=== PATIENT | female | born 1975 | race Caucasian/White ===

== ENCOUNTER 2017-12-22 06:52 | Inpatient (IN) | payer OTHER ==
[2017-12-22 07:31] LABS: ADD MAN DIFF? NO
[2017-12-22 07:35] LABS: URINE HCG POC HCG NEGATIVE (Negative)
[2017-12-22 07:37] LABS: BASO # 0.1 x10^3/uL (0.0-0.2); BASO % 2 % (0-3); EOS # 0.1 x10^3/uL (0.0-0.7); EOS % 1 % (0-3); LYMPH # 1.9 x10^3/uL (1.0-4.8); LYMPH % 37 % (24-48); MEAN CORPUSCULAR HEMOGLOBIN 16 pg (25-35); MEAN CORPUSCULAR HGB CONC 28 g/dL (31-37); MEAN CORPUSCULAR VOLUME 57 fL (79-100); MONO # 0.4 x10^3/uL (0.0-1.1); MONO % 8 % (0-9); NEUT # 2.6 x10^3uL (1.8-7.7); NEUT % 52 % (31-73); PLATELET COUNT 542 x10^3/uL (140-400); RED BLOOD COUNT 2.42 x10^6/uL (3.50-5.40); RED CELL DISTRIBUTION WIDTH 23.8 % (11.5-14.5); WHITE BLOOD COUNT 5.1 x10^3/uL (4.0-11.0)
[2017-12-22 07:43] LABS: HEMOGLOBIN 3.8 g/dL (12.0-15.5)
[2017-12-22 07:44] LABS: HEMATOCRIT 13.7 % (36.0-47.0)
[2017-12-22 07:46] LABS: ANION GAP 13 (6-14); BLOOD UREA NITROGEN 17 mg/dL (7-20); CALCIUM 8.6 mg/dL (8.5-10.1); CARBON DIOXIDE 22 mmol/L (21-32); CHLORIDE 105 mmol/L (98-107); CREATININE 1.1 mg/dL (0.6-1.0); GLUCOSE 99 mg/dL (70-99); POTASSIUM 3.9 mmol/L (3.5-5.1); SODIUM 140 mmol/L (136-145)
[2017-12-22 07:52] LABS: TROPONINI < 0.017 ng/mL (0.000-0.055)
[2017-12-22 07:54] LABS: BILIRUBIN,URINE NEGATIVE (NEG); CLARITY,URINE CLEAR; COLOR,URINE YELLOW; GLUCOSE,URINE NEGATIVE (NEG); NITRITE,URINE POSITIVE (NEG); PH,URINE 5.5; PROTEIN,URINE 30 mg/dL (NEG-TRACE)
[2017-12-22 08:04] LABS: BACTERIA,URINE MANY /HPF (0-FEW); RBC,URINE TNTC /HPF (0-2); SQUAMOUS EPITHELIAL CELL,UR FEW /LPF
[2017-12-22 09:01] LABS: ANISOCYTOSIS PRESENT; HYPOCHROMIA PRESENT; MICROCYTOSIS PRESENT; PLT ESTIMATE INCREASED (ADEQUATE); POIKILOCYTOSIS PRESENT; POLYCHROMASIA PRESENT
[2017-12-22] MEDS: medroxyPROGESTERone IM 150 MG/ML VIAL. IM (15:12)
[2017-12-22] MEDS: ACETAMINOPHEN 325 MG TABLET. PO (16:58)
[2017-12-23] MEDS: ACETAMINOPHEN 325 MG TABLET. PO ×2 (04:49→11:18)
[2017-12-23 07:26] LABS: ADD MAN DIFF? NO
[2017-12-23 07:31] LABS: BASO # 0.1 x10^3/uL (0.0-0.2); BASO % 1 % (0-3); EOS # 0.1 x10^3/uL (0.0-0.7); EOS % 1 % (0-3); HEMATOCRIT 22.2 % (36.0-47.0); LYMPH % 40 % (24-48); MEAN CORPUSCULAR HEMOGLOBIN 22 pg (25-35); MEAN CORPUSCULAR HGB CONC 32 g/dL (31-37); MEAN CORPUSCULAR VOLUME 68 fL (79-100); MONO # 0.5 x10^3/uL (0.0-1.1); MONO % 11 % (0-9); NEUT # 2.3 x10^3uL (1.8-7.7); NEUT % 47 % (31-73); PLATELET COUNT 392 x10^3/uL (140-400); RED BLOOD COUNT 3.26 x10^6/uL (3.50-5.40); RED CELL DISTRIBUTION WIDTH 32.8 % (11.5-14.5)
[2017-12-23 07:55] LABS: ALBUMIN 3.1 g/dL (3.4-5.0); ALK PHOS 53 U/L (46-116); ALT (SGPT) 10 U/L (14-59); ANION GAP 6 (6-14); AST (SGOT) 8 U/L (15-37); BLOOD UREA NITROGEN 11 mg/dL (7-20); BUN/CREATININE RATIO 12 (6-20); CALCIUM 8.8 mg/dL (8.5-10.1); CARBON DIOXIDE 26 mmol/L (21-32); CHLORIDE 106 mmol/L (98-107); CREATININE 0.9 mg/dL (0.6-1.0); GLUCOSE 90 mg/dL (70-99); POTASSIUM 4.5 mmol/L (3.5-5.1); SODIUM 138 mmol/L (136-145); TOTAL BILIRUBIN 0.4 mg/dL (0.2-1.0); TOTAL PROTEIN 6.3 g/dL (6.4-8.2)
[2017-12-23] MEDS ORDERED: ONDANSETRON ODT 4 MG TAB.RAPDIS. PO (08:45)
[2017-12-23] MEDS ORDERED: ACETAMINOPHEN 325 MG TABLET. PO (08:45)
[2017-12-23] MEDS ORDERED: ONDANSETRON PF 4 MG/2 ML VIAL. IV (08:45)
[2017-12-23] MEDS ORDERED: HYDROcodone/APAP 5/325MG 1 TAB TABLET PO (09:00)
[2017-12-23 10:19] LABS: IMMEDIATE SPIN CROSSMATCH 1 5
[2017-12-23 14:12] LABS: HEMATOCRIT 25.1 % (36.0-47.0); HEMOGLOBIN 7.9 g/dL (12.0-15.5); MEAN CORPUSCULAR HGB CONC 32 g/dL (31-37)
[2017-12-23] MEDS: IV NORMAL SALINE 1000ML BAG 1,000 ML IV ×2 (15:43→20:49)
[2017-12-24] MEDS: IV NORMAL SALINE 1000ML BAG 1,000 ML IV (01:24)
[2017-12-24 06:15] LABS: ADD MAN DIFF? NO
[2017-12-24 06:29] LABS: BASO # 0.1 x10^3/uL (0.0-0.2); BASO % 2 % (0-3); EOS # 0.1 x10^3/uL (0.0-0.7); EOS % 2 % (0-3); HEMATOCRIT 25.8 % (36.0-47.0); LYMPH # 1.9 x10^3/uL (1.0-4.8); LYMPH % 46 % (24-48); MEAN CORPUSCULAR HEMOGLOBIN 22 pg (25-35); MEAN CORPUSCULAR HGB CONC 31 g/dL (31-37); MEAN CORPUSCULAR VOLUME 71 fL (79-100); MONO # 0.4 x10^3/uL (0.0-1.1); MONO % 10 % (0-9); NEUT # 1.7 x10^3uL (1.8-7.7); NEUT % 41 % (31-73); PLATELET COUNT 354 x10^3/uL (140-400); RED BLOOD COUNT 3.65 x10^6/uL (3.50-5.40); RED CELL DISTRIBUTION WIDTH 32.5 % (11.5-14.5); WHITE BLOOD COUNT 4.1 x10^3/uL (4.0-11.0)
[2017-12-24] MEDS ORDERED: miSOPROStol 200MCG TAB 200 MCG TABLET (10:03)
[2017-12-24] MEDS ORDERED: OXYTOCIN 10 UNIT/ML VIAL. (10:03)
[2017-12-24] MEDS ORDERED: IV RINGERS,LACTATED 1000ML 1,000 ML IV (11:08)
[2017-12-24] MEDS ORDERED: LIDOCAINE 1% PF 2 ML VIAL. ID (11:15)
[2017-12-24] MEDS ORDERED: fentaNYL PF VIAL 100 MCG/2 ML VIAL IV (11:15)
[2017-12-24] MEDS ORDERED: fentaNYL PF VIAL 100 MCG/2 ML VIAL ×2 (11:47→12:51)
[2017-12-24] MEDS ORDERED: LIDOCAINE 2% PF Vial for OR 5 ML VIAL. (11:51)
[2017-12-24] MEDS ORDERED: PROPOFOL 20 ML IV (11:51)
[2017-12-24] MEDS: fentaNYL PF VIAL 100 MCG/2 ML VIAL IV (12:55)
[2017-12-24] MEDS: medroxyPROGESTERone IM 150 MG/ML VIAL. IM (13:02)
[2017-12-24] MEDS: ACETAMINOPHEN 325 MG TABLET. PO (14:15)
[2017-12-24 14:51] LABS: HEMATOCRIT 28.4 % (36.0-47.0); MEAN CORPUSCULAR HEMOGLOBIN 22 pg (25-35); MEAN CORPUSCULAR HGB CONC 32 g/dL (31-37); MEAN CORPUSCULAR VOLUME 70 fL (79-100); PLATELET COUNT 371 x10^3/uL (140-400); RED BLOOD COUNT 4.03 x10^6/uL (3.50-5.40); RED CELL DISTRIBUTION WIDTH 33.1 % (11.5-14.5); WHITE BLOOD COUNT 6.9 x10^3/uL (4.0-11.0)
== END 2017-12-24 16:10 | disposition home or self-care (01) | DRG 744 ==
LOC: ER 06:52 → 4 NORTH 09:33
PROC: 0UDB7ZX Extraction of Endometrium, Via Natural or Artificial Opening, Diagnostic (ICD-10-PCS; principal; 2017-12-24 11:50)
PROC: 30233N1 Transfusion of Nonautologous Red Blood Cells into Peripheral Vein, Percutaneous Approach (ICD-10-PCS; 2017-12-24 11:50)
DX: D25.9 Leiomyoma of uterus, unspecified (principal); D59.9 Acquired hemolytic anemia, unspecified; Z68.42 Body mass index [BMI] 45.0-49.9, adult; E66.9 Obesity, unspecified; I10 Essential (primary) hypertension; N92.1 Excessive and frequent menstruation with irregular cycle; Z83.3 Family history of diabetes mellitus; Z88.5 Allergy status to narcotic agent
CPT/HCPCS: 36415; 76830; 76856; 80048; 80053; 81001; 81025; 84484; 85014; 85018; 85025; 85027; 86850; 86900; 86901; 86920; 87086; 87186; 93005; 99285; 99285-25; J2001; J2590; J2704; J3010; J7030; P9016

== ENCOUNTER → 2018-06-29 | Outpatient (CLI) | payer OTHER ==
[2017-12-24 15:00] VITALS: BP 149/66
[~2018-06-29] MED LIST: FERR325T14 PO; MULT-245 PO; NITR100C PO
[2018-06-29 15:00] LABS: BILIRUBIN,URINE NEGATIVE (NEG); CLARITY,URINE CLEAR; COLOR,URINE YELLOW; NITRITE,URINE POSITIVE (NEG); PROTEIN,URINE NEGATIVE (NEG-TRACE); UROBILINOGEN,URINE 0.2 mg/dL (0.2 mg/dL)
[2018-06-29 15:02] LABS: BASO # 0.1 x10^3/uL (0.0-0.2); BASO % 1 % (0-3); EOS # 0.1 x10^3/uL (0.0-0.7); EOS % 1 % (0-3); HEMATOCRIT 29.6 % (36.0-47.0); HEMOGLOBIN 8.7 g/dL (12.0-15.5); LYMPH # 2.3 x10^3/uL (1.0-4.8); LYMPH % 31 % (24-48); MEAN CORPUSCULAR HEMOGLOBIN 23 pg (25-35); MEAN CORPUSCULAR HGB CONC 29 g/dL (31-37); MEAN CORPUSCULAR VOLUME 77 fL (79-100); MONO # 0.6 x10^3/uL (0.0-1.1); MONO % 9 % (0-9); NEUT # 4.4 x10^3uL (1.8-7.7); NEUT % 58 % (31-73); PLATELET COUNT 556 x10^3/uL (140-400); RED BLOOD COUNT 3.84 x10^6/uL (3.50-5.40); RED CELL DISTRIBUTION WIDTH 22.7 % (11.5-14.5); WHITE BLOOD COUNT 7.5 x10^3/uL (4.0-11.0)
[2018-06-29 15:14] LABS: BACTERIA,URINE MANY /HPF (0-FEW); RBC,URINE OCC /HPF (0-2); SQUAMOUS EPITHELIAL CELL,UR MOD /LPF
[2018-06-29 15:20] LABS: ALBUMIN 3.5 g/dL (3.4-5.0); CALCIUM 9.1 mg/dL (8.5-10.1); CREATININE 0.8 mg/dL (0.6-1.0); GFR 77.6; POTASSIUM 4.1 mmol/L (3.5-5.1); TOTAL BILIRUBIN 0.2 mg/dL (0.2-1.0); TOTAL PROTEIN 7.1 g/dL (6.4-8.2)
[2018-06-29 15:38] LABS: PLT ESTIMATE INCREASED (ADEQUATE)
[2018-06-29 15:39] LABS: ANISOCYTOSIS MOD; HYPOCHROMIA MOD; POLYCHROMASIA OCCASIONAL
--- NOTE | 2018-06-29 16:12 | RAD ---
PA and lateral chest. HISTORY: Morbid obesity, preop, hysterectomy PA and lateral views were taken of the chest. Lungs are clear. Heart is normal in size without heart failure. There is no pleural effusion. IMPRESSION: 1. No acute chest disease. Electronically signed by: Rian Ribeiro MD (06/29/2018 4:07 PM) [facility]
--- NOTE | 2018-06-30 07:38 | NUR ---
pre-operative test results faxed to Dr. Pimentel
== END | disposition home or self-care (01) ==
LOC: SURGPAT 14:11
PROVIDERS: ATTEND Obstetrics & Gynecology
DX: Z01.818 Encounter for other preprocedural examination (principal); E66.01 Morbid (severe) obesity due to excess calories; I10 Essential (primary) hypertension; K21.9 Gastro-esophageal reflux disease without esophagitis; Z90.710 Acquired absence of both cervix and uterus; Z90.89 Acquired absence of other organs; Z90.49 Acquired absence of other specified parts of digestive tract
CPT/HCPCS: 36415; 71046; 80053; 81001; 85025; 87086; 87186

== ENCOUNTER 2018-07-06 05:39 | Inpatient (IN) | payer OTHER ==
[2018-07-06] VITALS (10 sets, daily range): BP systolic 131–148; BP diastolic 74–88
[~2018-07-06] VITALS: Ht 162.6 cm; Wt 131.7 kg
[2018-07-06] MEDS ORDERED: ceFAZolin SODIUM 3 GM in IV DEXTROSE 5% 100ML 100 ML IV PRN (06:00)
[2018-07-06 06:22] LABS: U PREG PATIENT NEGATIVE (NEG)
[2018-07-06 06:37] LABS: BILIRUBIN,URINE NEGATIVE (NEG); CLARITY,URINE CLEAR; COLOR,URINE YELLOW; NITRITE,URINE NEGATIVE (NEG); PH,URINE 6.5; PROTEIN,URINE NEGATIVE (NEG-TRACE); UROBILINOGEN,URINE 0.2 mg/dL (0.2 mg/dL)
[2018-07-06 06:52] LABS: RBC,URINE 0 /HPF (0-2); SQUAMOUS EPITHELIAL CELL,UR MOD /LPF
[2018-07-06 06:53] LABS: BACTERIA,URINE FEW /HPF (0-FEW); WBC,URINE OCC /HPF (0-4)
[2018-07-06 07:00] LABS: BASO # 0.1 x10^3/uL (0.0-0.2); BASO % 1 % (0-3); EOS % 1 % (0-3); HEMATOCRIT 34.2 % (36.0-47.0); HEMOGLOBIN 9.9 g/dL (12.0-15.5); LYMPH # 1.6 x10^3/uL (1.0-4.8); LYMPH % 25 % (24-48); MEAN CORPUSCULAR HEMOGLOBIN 23 pg (25-35); MEAN CORPUSCULAR HGB CONC 29 g/dL (31-37); MEAN CORPUSCULAR VOLUME 79 fL (79-100); MONO # 0.6 x10^3/uL (0.0-1.1); MONO % 10 % (0-9); NEUT # 4.2 x10^3uL (1.8-7.7); NEUT % 64 % (31-73); PLATELET COUNT 486 x10^3/uL (140-400); RED BLOOD COUNT 4.35 x10^6/uL (3.50-5.40); RED CELL DISTRIBUTION WIDTH 21.9 % (11.5-14.5); WHITE BLOOD COUNT 6.5 x10^3/uL (4.0-11.0)
[2018-07-06] MEDS ORDERED: fentaNYL PF VIAL 100 MCG/2 ML VIAL IV PRN (07:00)
[2018-07-06] MEDS ORDERED: IV RINGERS,LACTATED 1000ML 1,000 ML IV SCH (07:00)
[2018-07-06] MEDS ORDERED: ONDANSETRON PF 4 MG/2 ML VIAL. IV PRN ×2 (07:00→10:30)
[2018-07-06] MEDS ORDERED: LIDOCAINE 1% PF 2 ML VIAL. ID PRN (07:00)
[2018-07-06] MEDS ORDERED: BUPIVACAINE-EPI 0.25%-1:200000 MPF 30 ML VIAL. ONE (07:08)
[2018-07-06] MEDS ORDERED: ESTROGENS, CONJ VAGINAL CREAM 30GM TUBE. ONE (07:08)
[2018-07-06] MEDS ORDERED: fentaNYL PF VIAL 100 MCG/2 ML VIAL ONE ×4 (07:10→11:02)
[2018-07-06] MEDS ORDERED: PROPOFOL 20 ML IV ONE (07:10)
[2018-07-06] MEDS ORDERED: ROCURONIUM 50 MG/5 ML VIAL. ONE ×2 (07:10→08:08)
[2018-07-06] MEDS ORDERED: LIDOCAINE 2% PF Vial for OR 5 ML VIAL. ONE (07:10)
[2018-07-06] MEDS ORDERED: MIDAZOLAM HCL/PF 2 MG/2 ML VIAL. ONE (07:10)
[2018-07-06] MEDS ORDERED: DEXAMETHASONE SOD PHOS 20 MG/5 ML VIAL. ONE (07:10)
[2018-07-06] MEDS ORDERED: ONDANSETRON PF 4 MG/2 ML VIAL. ONE (07:10)
[2018-07-06] MEDS ORDERED: PHENYLEPHRINE 10 MG/ML VIAL. ONE (07:52)
[2018-07-06] MEDS ORDERED: FERROUS SULFATE 325 MG TABLET. PO SCH (08:00)
[2018-07-06] MEDS ORDERED: ALBUMIN HUMAN 5% 500 ML IV ONE (09:23)
[2018-07-06 09:33] LABS: ANISOCYTOSIS MOD; HYPOCHROMIA MOD; MICROCYTOSIS PRESENT; PLT ESTIMATE INCREASED (ADEQUATE)
[2018-07-06 09:34] LABS: POLYCHROMASIA PRESENT
[2018-07-06] MEDS ORDERED: ATROPINE 1 MG/10 ML DISP.SYRINGE. ONE (09:37)
[2018-07-06] MEDS ORDERED: GLYCOPYRROLATE 1 MG/5 ML VIAL. ONE (09:37)
[2018-07-06] MEDS ORDERED: NEOSTIGMINE 10 MG/10 ML VIAL. ONE (09:37)
[2018-07-06] MEDS ORDERED: SIMETHICONE 80 MG TAB.CHEW PO PRN (10:30)
[2018-07-06] MEDS ORDERED: HYDROmorphone 2 MG TABLET PO PRN (10:30)
[2018-07-06] MEDS ORDERED: 0.9 % SODIUM CHLORIDE 10 ML DISP.SYRIN. IV PRN (10:30)
[2018-07-06] MEDS ORDERED: MAGNESIUM HYDROXIDE 2,400 MG/30 ML ORAL.SUSP. PO PRN (10:30)
[2018-07-06] MEDS ORDERED: diphenhydrAMINE 50 MG/ML VIAL IV PRN (10:30)
[2018-07-06] MEDS: PROCHLORPERAZINE 10 MG/2 ML VIAL. IV PRN ×2 (10:30→10:57)
[2018-07-06] MEDS ORDERED: ZOLPIDEM 5 MG TABLET. PO PRN (10:30)
[2018-07-06] MEDS ORDERED: NALOXONE 0.4 MG/ML VIAL. IV PRN (10:30)
[2018-07-06] MEDS ORDERED: MAG HYDROX/ALUMINUM HYD/SIMETH 30 ML ORAL.SUSP PO PRN (10:30)
[2018-07-06] MEDS: fentaNYL PF VIAL 100 MCG/2 ML VIAL IV PRN ×4 (10:30→11:35)
[2018-07-06] MEDS ORDERED: CALCIUM CARBONATE 500 MG TAB.CHEW PO PRN (10:30)
[2018-07-06] MEDS ORDERED: LACTULOSE 20 GM/30 ML SOLUTION. PO PRN (10:30)
[2018-07-06] MEDS ORDERED: diphenhydrAMINE HCL 25 MG CAPSULE PO PRN (10:30)
[2018-07-06] MEDS ORDERED: PROCHLORPERAZINE 10 MG/2 ML VIAL. ONE (10:31)
--- NOTE | 2018-07-06 10:37 | PDOC ---
BRIEF OPERATIVE NOTE Date: Jul 06, 2018 Pre-Op Diagnosis enlrged fibroid uterus, menorrhagia, chronic anemia Post-Op Diagnosis same Procedure Performed Diagnostic laparoscopy, converted to AIDA/BSO Surgeon Dr. Perla Pimentel [employer] Faculty Kristen Wilson Anesthesiologist Dr. Preciado Anesthesia Type: General Blood Loss 500cc IV Fluid 2200cc crystalloid, 500cc albumin Urine Output 175cc clear via bowman Specimens Obtained cervix, uterus, bilateral tubes and ovaries (tube never positively identified on left side) Findings very enlarged fibroid uterus, cyst right ovary Complications none Operative Note [id number] PERLA PIMENTEL MD Jul 06, 2018 10:37
[2018-07-06 10:49] LABS: HEMATOCRIT 32.6 % (36.0-47.0); HEMOGLOBIN 9.6 g/dL (12.0-15.5); RED BLOOD COUNT 4.14 x10^6/uL (3.50-5.40); WHITE BLOOD COUNT 10.9 x10^3/uL (4.0-11.0)
--- NOTE | 2018-07-06 11:54 | OP ---
DATE OF SURGERY: 07/06/2018 PREOPERATIVE DIAGNOSIS: Enlarged fibroid uterus, menorrhagia and, chronic anemia. POSTOPERATIVE DIAGNOSES: Enlarged fibroid uterus, menorrhagia and chronic anemia. PROCEDURE: Diagnostic laparoscopy converted to a total abdominal hysterectomy and bilateral salpingo-oophorectomy. SURGEON: Tyrel Pimentel MD SCHOOL CLEANER: Mariel Ricks. ANESTHESIOLOGIST: Dr. Preciado ANESTHESIA: General. ESTIMATED BLOOD LOSS: 500 mL. URINE OUTPUT: 175 mL clear via Espino catheter. FLUIDS: 2200 mL of crystalloid and 500 of albumin. SPECIMENS: Cervix, uterus, bilateral tubes and ovaries, although the left fallopian tube was never positively identified. FINDINGS: Very enlarged fibroid uterus and a cyst on the right ovary, otherwise a normal left ovary and normal right tube. COMPLICATIONS: None. DESCRIPTION OF PROCEDURE: This patient was taken to the operating room where general anesthesia was placed. The patient was placed in dorsal lithotomy position [facility]. The patient's abdomen and vagina were prepped and draped in the normal sterile fashion and a Espino catheter had been inserted under sterile technique. Upon my arrival, a timeout was performed. A bivalve speculum was placed in the patient's vagina. A single-tooth tenaculum was used to grasp the anterior lip of the cervix. A 10 mL of 0.5% Marcaine with epinephrine was used to circumferentially inject around the cervix for both hemodissection and hemostatic purposes later. The Valtchev uterine manipulator was placed through the endocervical os, locked on the single tooth tenaculum and the bivalve speculum was then removed. Top gloves were discarded and changed. Knowing this was a very enlarged uterus and pushing it up and could feel it very high, I did go 2 or 3 cm above the umbilicus for the incision, carried down to the underlying layer of the fascia. The short trocar was not long enough with tenting up the abdomen and trying to go in with the Visiport. So a long one was obtained and upon initial entry, I could see the top of the fundus, but it did insufflate with air, I was able to look around, but unfortunately even pulling it back being above the umbilicus, the uterus was too enlarged to complete this laparoscopically. So at this point, it was just a diagnostic scope looking around and she had blood in her abdomen from backflow of blood, you could see it in the tubes, in the cul-de-sac even upon initial entry into the abdominal cavity. So at this point, it was decided to convert to a total abdominal hysterectomy, so that was removed. A 4-0 nylon was placed in that and it was injected with local at the skin on that one supraumbilical site. At this point, everything was converted and a Pfannenstiel skin incision was made with the scalpel, carried down to the underlying layer of the fascia with the Bovie cautery for hemostasis and to cut. The fascia was scored in the midline and extended sharply and bluntly bilaterally with Childers scissors and the cautery. Nelda clamps x 2 were placed on the superior fascial edge and the fascia was dissected from the rectus muscles beneath sharply and bluntly. This was done inferiorly as well taking it down to the pubic bone. The rectus muscles were in the midline and two Kellys were used to tent up the peritoneum, pinching it, making sure it was free, taking the Metzenbaum scissors and incising it and entering the peritoneal cavity. The peritoneum was digitally and bluntly stretched and the Metzenbaum scissors were used to extend it under direct visualization. At this point, the uterus could easily be obtained and was brought through the incision. Once this was done, curved Peans were placed on the cornua of the uterus bilaterally. A handheld Annita was used to retract anteriorly and I could see the patient's left round ligament. Two stitches were placed in it with 0 Vicryl, first adjusted a stitch and tagging it and then a secondary stitch. Bovie cautery was used to go between the two on the round, plicating it, taking the anterior one down to make the anterior bladder leaf and then posteriorly down. Again it was this left side, I never positively identified a tube. I was able to go under the uterus, finding an area, getting my finger through under the uterus in this area. I could feel the ureter coursing very, very low. Staying high on the ovary, curved Cody clamps x 2 were placed over the IP ligament just under the uterus. The Peans were moved down for the back bleeding of blood. They were cut and they were doubly ligated with 0 Vicryl, first and before and after the second one was taken through and a secondary stitch with 0 Vicryl. Once this was done, this was all done exactly the same on the right side first getting the round ligament x 2 with 0 Vicryl, two different stitches, going through with the Bovie cautery in between them, going down and further meeting that bladder flap anteriorly on the uterus, elevating the right tube and ovary, ureter was very low, finding an opening in the mesosalpinx here and taking curved Cody clamps x 2 under the ovary, staying high on the IP ligament on the right side, double clamping them, moving down that curved Pean for backbleeding on the uterus, double clamping them, cutting and suture ligating x 2 with 0 Vicryl. Once this was done, the bladder was taken down again making sure that the ovarian pedicles were good and skeletonizing around the uterines and taking curved Cody clamps x 2 over the right uterine vessels, double clamping them, putting a straight Nelda for backbleeding, cutting with curved Mayos and suture ligating x 2. Staying inside this pedicle with straight Heaneys going down through the cardinal and broad ligaments, double clamping them with straight Heaneys x 2, hugging the cervix and uterus, cutting with the knife and then suture ligating x 2 again with 0 Vicryl. This was done in a couple bites going down and then I switched sides and did the same thing, getting the uterine vessels with curved Heaneys on the left side, getting a Nelda for the backbleeding and then cutting it with Childers scissors and suture ligating x 2 with 0 Vicryl and then staying inside this pedicle with straight Heaneys, hugging the cervix and going down through the cardinal and broad ligaments in a series of couple bites, first double clamping with straight Heaneys, cutting with the long knife and suture ligating x 2 with 0 Vicryl. On this left side, I was able to get down to the uterosacrals, putting curved Heaneys on and double clamping with curved Cody's, cutting with the curved Mayos and I entered the vagina and could watch the cervix bulge through and I suture ligated x 2 with 0 Vicryl. I tagged the second one since it was the corner cuff tag. At this point, I went back around to the right side doing another straight and then getting the uterosacrals with curved Heaneys until I entered on this side as well, seeing the cervix bulge and I tagged this side as well on the second 0 Vicryl. The Osmany scissors were used to amputate the remaining cervix and the cervix, uterus, bilateral tubes and ovaries were delivered and passed off in total for permanent pathology. Long Allises were placed on the vaginal cuff and in a series of 3 or 4 interrupted [id number] stitches of 2-0 Vicryl was used to close the vaginal cuff and they were tagged first starting at the corners, getting the corners, going outside to in and coming back out and going through that uterosacral, tagging the corner of the cuff to the uterosacrals and then in a series of like I said four or five interrupted 2-0 Vicryl stitches closing the vaginal cuff and tagging them. Once this was done, copious irrigation revealed hemostasis. The round ligament tags were clipped. The cuff tags were clipped. A second look revealed hemostasis. So at this point, the omentum and the subcuticular layer and the rectus muscles were examined and it was all hemostatic, so 0 Vicryl was used to close from left to just past midline and right to just past this and then tied together in the middle with 0 Vicryl closing the fascia. The Lucian's subcuticular layer was closed with 2-0 Vicryl in a running locked fashion. Bovie cautery was used in the subcuticular layer. I did irrigate again the subcuticular layer after closing the fascia before doing that 2-0 Vicryl on the Lucian's subcuticular layer and then liana were used on the skin. All sponge, lap and needle counts were correct x 2 by OR personnel and the patient was awakened from anesthesia, extubated, and brought to the recovery room in stable condition. As we were converting to abdominal, the single tooth and Valtchev were removed vaginally, so we could do the hysterectomy from above. The patient was brought to recovery room in stable condition. TYREL PIMENTEL MD DR: DALIA/radha JOB#: [id number] / [id number]
[2018-07-06] MEDS: MORPHINE SULFATE 4 MG/ML VIAL. IV PRN ×2 (12:44→13:46)
[2018-07-06] MEDS: HYDROcodone/APAP 5/325MG 1 TAB TABLET PO PRN ×2 (16:53→21:45)
[2018-07-07 01:07] VITALS: BP 137/84
[2018-07-07] MEDS: HYDROcodone/APAP 5/325MG 1 TAB TABLET PO PRN ×6 (02:03→22:34)
[2018-07-07 05:00] VITALS: BP 133/77
[2018-07-07 07:25] LABS: CALCIUM 9.2 mg/dL (8.5-10.1); CREATININE 0.7 mg/dL (0.6-1.0); GFR 90.5; POTASSIUM 3.9 mmol/L (3.5-5.1)
[2018-07-07] MEDS ORDERED: FERROUS SULFATE 325 MG TABLET. PO SCH (08:00)
--- NOTE | 2018-07-07 08:39 | PDOC ---
SURGICAL PROGRESS NOTE Subjective Doing well without complaints. Scant VB, catheter out. Mininal pain Vital Signs Vital Signs Date Time Temp Pulse Resp B/P (MAP) Pulse Ox O2 Delivery O2 Flow Rate FiO2 07/07/18 07:10 18 Room Air 07/07/18 05:00 98.4 104 133/77 (95) 94 98.4 07/06/18 21:46 1.0 I&O Intake and Output 07/07/18 07:00 Intake Total 6471 ml Output Total 4000 ml Balance 2471 ml Intake Oral 960 ml IV Total 3600 ml Other 1911 ml Output Urine Total 3500 ml Estimated Blood Loss 500 ml PATIENT HAS A GARCÍA: No General: Alert, Oriented X3, Cooperative, No acute distress HEENT: Atraumatic Heart: Regular rate Abdomen: Soft, No tenderness, No masses Extremities: No clubbing, No cyanosis, No edema, No tenderness/swelling Skin: No rashes, No breakdown Psych/Mental Status: Mental status NL, Mood NL Labs Laboratory Tests Test 07/06/18 06:15 07/06/18 06:18 07/06/18 10:35 07/07/18 06:25 White Blood Count 6.5 x10^3/uL (4.0-11.0) 10.9 x10^3/uL (4.0-11.0) Red Blood Count 4.35 x10^6/uL (3.50-5.40) 4.14 x10^6/uL (3.50-5.40) Hemoglobin 9.9 g/dL (12.0-15.5) 9.6 g/dL (12.0-15.5) Hematocrit 34.2 % (36.0-47.0) 32.6 % (36.0-47.0) 30.9 % (36.0-47.0) Mean Corpuscular Volume 79 fL (79-100) 79 fL (79-100) Mean Corpuscular Hemoglobin 23 pg (25-35) 23 pg (25-35) Mean Corpuscular Hemoglobin Concent 29 g/dL (31-37) 29 g/dL (31-37) Red Cell Distribution Width 21.9 % (11.5-14.5) 22.0 % (11.5-14.5) Platelet Count 486 x10^3/uL (140-400) 429 x10^3/uL (140-400) Neutrophils (%) (Auto) 64 % (31-73) Lymphocytes (%) (Auto) 25 % (24-48) Monocytes (%) (Auto) 10 % (0-9) Eosinophils (%) (Auto) 1 % (0-3) Basophils (%) (Auto) 1 % (0-3) Neutrophils # (Auto) 4.2 x10^3uL (1.8-7.7) Lymphocytes # (Auto) 1.6 x10^3/uL (1.0-4.8) Monocytes # (Auto) 0.6 x10^3/uL (0.0-1.1) Eosinophils # (Auto) 0.0 x10^3/uL (0.0-0.7) Basophils # (Auto) 0.1 x10^3/uL (0.0-0.2) Platelet Estimate Increased (ADEQUATE) Large Platelets Present Polychromasia Present Hypochromasia Mod Anisocytosis Mod Microcytosis Present Urine Collection Type Unknown Urine Color Yellow Urine Clarity Clear Urine pH 6.5 Urine Specific [place] 1.015 Urine Protein Negative mg/dL (NEG-TRACE) Urine Glucose (UA) Negative mg/dL (NEG) Urine Ketones (Stick) Negative mg/dL (NEG) Urine Blood Negative (NEG) Urine Nitrite Negative (NEG) Urine Bilirubin Negative (NEG) Urine Urobilinogen Dipstick 0.2 mg/dL (0.2 mg/dL) Urine Leukocyte Esterase Negative (NEG) Urine RBC 0 /HPF (0-2) Urine WBC Occ /HPF (0-4) Urine Squamous Epithelial Cells Mod /LPF Urine Bacteria Few /HPF (0-FEW) Urine Mucus Mod /LPF Urine Test Negative (NEG) Sodium Level 139 mmol/L (136-145) Potassium Level 3.9 mmol/L (3.5-5.1) Chloride Level 104 mmol/L (98-107) Carbon Dioxide Level 26 mmol/L (21-32) Anion Gap 9 (6-14) Blood Urea Nitrogen 6 mg/dL (7-20) Creatinine 0.7 mg/dL (0.6-1.0) Estimated GFR (Cockcroft-Gault) 90.5 Glucose Level 113 mg/dL (70-99) Calcium Level 9.2 mg/dL (8.5-10.1) Laboratory Tests Test 07/06/18 10:35 07/07/18 06:25 White Blood Count 10.9 x10^3/uL (4.0-11.0) Red Blood Count 4.14 x10^6/uL (3.50-5.40) Hemoglobin 9.6 g/dL (12.0-15.5) Hematocrit 32.6 % (36.0-47.0) 30.9 % (36.0-47.0) Mean Corpuscular Volume 79 fL (79-100) Mean Corpuscular Hemoglobin 23 pg (25-35) Mean Corpuscular Hemoglobin Concent 29 g/dL (31-37) Red Cell Distribution Width 22.0 % (11.5-14.5) Platelet Count 429 x10^3/uL (140-400) Sodium Level 139 mmol/L (136-145) Potassium Level 3.9 mmol/L (3.5-5.1) Chloride Level 104 mmol/L (98-107) Carbon Dioxide Level 26 mmol/L (21-32) Anion Gap 9 (6-14) Blood Urea Nitrogen 6 mg/dL (7-20) Creatinine 0.7 mg/dL (0.6-1.0) Estimated GFR (Cockcroft-Gault) 90.5 Glucose Level 113 mg/dL (70-99) Calcium Level 9.2 mg/dL (8.5-10.1) I have reviewed the following labs, vitals, nursing Pulmonary: No pertinent hx GI: No pertinent hx Heme/Onc: Anemia NOS Infectious disease: No pertinent hx Assessment/Plan POD #1 s/p AIDA/BSO routine po care advance diet ambulate continue to monitor TYREL HOUGH MD Jul 07, 2018 08:39
[2018-07-07 11:00] VITALS: BP 139/78
[2018-07-07 17:48] VITALS: BP 127/81
[2018-07-07 21:38] VITALS: BP 132/87
[2018-07-08] MEDS: HYDROcodone/APAP 5/325MG 1 TAB TABLET PO PRN ×2 (02:36→06:51)
[2018-07-08 05:17] VITALS: BP 124/71
--- NOTE | 2018-07-08 07:53 | NUR ---
home instructions gone over with pt and signed has appt already made and pain meds at home. mother here to take her home
--- NOTE | 2018-07-08 08:49 | PDOC ---
SURGICAL PROGRESS NOTE Subjective Doing well without complaints. Pain level 3 and ambulating well and voiding well wihtout catheter. Tolerating PO pain meds and regular diet. Wanting to go home Vital Signs Vital Signs Date Time Temp Pulse Resp B/P (MAP) Pulse Ox O2 Delivery O2 Flow Rate FiO2 07/08/18 06:51 18 96 Room Air 07/08/18 05:17 99.0 95 124/71 (88) 99.0 95 07/07/18 08:43 1.0 I&O Intake and Output 07/08/18 07:00 Intake Total 680 ml Output Total 350 ml Balance 330 ml Intake Oral 680 ml Output Urine Total 350 ml # Voids 8 PATIENT HAS A GARCÍA: No General: Alert, Oriented X3, Cooperative, No acute distress HEENT: Atraumatic Heart: Regular rate Abdomen: Soft, No tenderness, Other (incision c/d/i with liana) Extremities: No clubbing, No cyanosis, No edema, No tenderness/swelling Skin: No rashes, No breakdown Neuro: Normal speech Psych/Mental Status: Mental status NL, Mood NL Labs Laboratory Tests Test 07/06/18 10:35 07/07/18 06:25 White Blood Count 10.9 x10^3/uL (4.0-11.0) Red Blood Count 4.14 x10^6/uL (3.50-5.40) Hemoglobin 9.6 g/dL (12.0-15.5) Hematocrit 32.6 % (36.0-47.0) 30.9 % (36.0-47.0) Mean Corpuscular Volume 79 fL (79-100) Mean Corpuscular Hemoglobin 23 pg (25-35) Mean Corpuscular Hemoglobin Concent 29 g/dL (31-37) Red Cell Distribution Width 22.0 % (11.5-14.5) Platelet Count 429 x10^3/uL (140-400) Sodium Level 139 mmol/L (136-145) Potassium Level 3.9 mmol/L (3.5-5.1) Chloride Level 104 mmol/L (98-107) Carbon Dioxide Level 26 mmol/L (21-32) Anion Gap 9 (6-14) Blood Urea Nitrogen 6 mg/dL (7-20) Creatinine 0.7 mg/dL (0.6-1.0) Estimated GFR (Cockcroft-Gault) 90.5 Glucose Level 113 mg/dL (70-99) Calcium Level 9.2 mg/dL (8.5-10.1) I have reviewed the following labs, vitals, nursing Cardiovascular: HTN Pulmonary: No pertinent hx GI: No pertinent hx Heme/Onc: Anemia NOS Psych: No pertinent hx Assessment/Plan POD #2 s/p diag scope and then AIDA/BSO for enlarged uterus, menorrhagia to anemia routine po care d/c to home NPV x 6 weeks light/limited activity x 2 weeks keep scheduled follow up in one week already has pain pills filled at home NO driving while on narcotic pain meds ok for OTC ibuprofen if needed call or return sooner for any other questions or concerns not limited to but including pain unrelieved with pain meds, increased or unexplained vaginal bleeding or T>100.4 TYREL HOUGH MD Jul 08, 2018 08:49
--- NOTE | 2018-07-08 08:52 | PDOC3 ---
Discharge Summary Visit Information Date of Admission: Jul 06, 2018 Date of Discharge: Jul 08, 2018 Final Diagnosis enlarged uterus, menorrhagia, chronic anemia Brief Hospital Course Allergies Allergies Coded Allergies Type Severity Reaction Last Updated Verified No Known Medication Allergies Allergy Unknown 07/07/18 Yes oxycodone Adverse Reaction Intermediate vomiting 07/06/18 Yes Vital Signs Vital Signs Date Time Temp Pulse Resp B/P (MAP) Pulse Ox O2 Delivery O2 Flow Rate FiO2 07/08/18 06:51 18 96 Room Air 07/08/18 05:17 99.0 95 124/71 (88) 99.0 95 07/07/18 08:43 1.0 Lab Results Laboratory Tests Test 07/06/18 10:35 07/07/18 06:25 White Blood Count 10.9 x10^3/uL (4.0-11.0) Red Blood Count 4.14 x10^6/uL (3.50-5.40) Hemoglobin 9.6 g/dL (12.0-15.5) Hematocrit 32.6 % (36.0-47.0) 30.9 % (36.0-47.0) Mean Corpuscular Volume 79 fL (79-100) Mean Corpuscular Hemoglobin 23 pg (25-35) Mean Corpuscular Hemoglobin Concent 29 g/dL (31-37) Red Cell Distribution Width 22.0 % (11.5-14.5) Platelet Count 429 x10^3/uL (140-400) Sodium Level 139 mmol/L (136-145) Potassium Level 3.9 mmol/L (3.5-5.1) Chloride Level 104 mmol/L (98-107) Carbon Dioxide Level 26 mmol/L (21-32) Anion Gap 9 (6-14) Blood Urea Nitrogen 6 mg/dL (7-20) Creatinine 0.7 mg/dL (0.6-1.0) Estimated GFR (Cockcroft-Gault) 90.5 Glucose Level 113 mg/dL (70-99) Calcium Level 9.2 mg/dL (8.5-10.1) Brief Hospital Course Ms. Valentine is a 43 old female who presented with menorrhagia, enlarged uterus and chronic anemia. She underwent a diagnostic scope, found very enlarged uterus despite pretreatment with depo lupron and converted to AIDA/BSO. Pt has had an unremarkable postoperative course and is doing well, voiding without catheter, tolerating a regular diet, ambulating well and wanting to go home. She came in anemic, but even after surgery she is stable and did not need blood. Discharge Information Condition at Discharge: Stable Follow Up: Weeks Disposition/Orders: D/C to Home Scheduled Ferrous Sulfate (Ferrous Sulfate) 325 Mg Tablet, 1 TAB PO DAILY, #30 Ref 3 Prescribed by: SALO LEDBETTER on 12/24/17 1510 Last Taken: Unknown Dose on 07/05/18 Last Action: Continued on 07/06/18730 by TYREL HOUGH Multivitamin (Multi Vitamin Daily) 1 Each Tablet, 1 EACH PO DAILY for vitamins, (Reported) Entered as Reported by: KIMBERLY DE SOUZA on 06/29/18 1424 Last Taken: Unknown Dose on 07/05/18 Last Action: HELD on 07/06/18730 by TYREL HOUGH Nitrofurantoin Macrocrystal (Nitrofurantoin) 100 Mg Capsule, 100 MG PO BID for UTI, (Reported) Entered as Reported by: KEVIN WATSON on 07/04/18 1707 Last Taken: Unknown Dose on 07/05/18 Last Action: HELD on 07/06/18730 by TYREL HOUGH Patient Instructions Patient Instructions POD #2 s/p diag scope and then AIDA/BSO for enlarged uterus, menorrhagia to anemia routine po care d/c to home NPV x 6 weeks light/limited activity x 2 weeks keep scheduled follow up in one week already has pain pills filled at home NO driving while on narcotic pain meds ok for OTC ibuprofen if needed call or return sooner for any other questions or concerns not limited to but including pain unrelieved with pain meds, increased or unexplained vaginal bleeding or T>100.4 TYREL HOUGH MD Jul 08, 2018 08:52
--- NOTE | 2018-07-08 13:07 | PATHOLOGY ---
[facility] Accession Number: [id number] . 01 Material submitted: . UTERUS, CERVIX, BILATERAL FALLOPIAN TUBES AND OVARIES . 01 Clinical history: . Menorrhagia . 02 Diagnosis: Uterus and attached right fallopian tube and bilateral ovaries, total abdominal hysterectomy with bilateral salpingo-oophorectomy: - Leiomyomas, uterine corpus, subserosal/intramural/submucosal, multiple, the largest measuring 6.2 cm in greatest dimension and showing focal infarction. - Nabothian cysts, uterine cervix, few. - Mild chronic and focal acute endometritis. - Right fallopian tube showing no diagnostic abnormalities. - Single small cystic follicles of bilateral ovaries. (JPM:ashley; 07/08/2018) MBR/07/08/2018 . 02 Comment: There is no atypia or evidence of malignancy. (JPM:ashley; 07/08/2018) . 02 Electronically signed: . Dimitry Flor MD, Pathologist NPI- [id number] . 01 Gross description: . The specimen is received in formalin, labeled "Luba Valentine, uterus, cervix, bilateral fallopian tubes, bilateral ovaries". Received is an 846 g, 17.7 x 10.6 x 10.4 cm uterus with attached cervix, attached left ovary weighing 4 g, and attached right adnexa weighing 7 g. The uterine serosa is pink-pavon to pink-barth and smooth in appearance. The 0.5 cm cervical os is surrounded by pale pavon, smooth ectocervical mucosa. The uterus is oriented using the peritoneal reflection and the anterior paracervical margin is inked black. There is a nodule present along the anterior aspect of the lower uterine segment measuring 1.5 x 1.2 x 1.0 cm. The uterus is opened laterally to reveal a pale pavon endocervical canal measuring 4.5 cm in length. The endometrial cavity is distorted measuring 9.0 cm in length by 4.3 cm in diameter. The endometrium is pink-pavon, smooth to slightly irregular in contour and measures 0.1 cm in thickness. Serial sectioning reveals a pavon-pink, trabeculated myometrium measuring up to 7.2 cm in thickness displaying multiple subserosal, intramural, and submucosal fibroids ranging in size from 0.5 to 6.2 cm in maximum dimensions. . The left ovary measures 3.4 x 1.8 x 1.4 cm in greatest dimensions. Sectioning reveals a unilocular cystic structure measuring 0.6 cm filled with blood-tinged fluid. The remaining cut surfaces display pale pavon, normal ovarian stroma. . The right adnexa consists of a fimbriated fallopian tube measuring 7.5 cm in length by 0.5 cm in diameter attached to a 2.5 x 2.0 x 1.3 cm ovary. Sectioning through the fallopian tube reveals a pinpoint to patent lumen. Sectioning through the ovary reveals pale pavon, normal ovarian stroma. The specimen is submitted representatively as follows: . A1 12:00 cervix A2 6:00 cervix A3 serosal nodule from anterior aspect of lower uterine segment A4 anterior endomyometrium A5 posterior endomyometrium A6-A8 sales and merchandising representative sections of fibroids A9 left ovary A10 right adnexa. (CAA; 07/07/2018) QA/QAC . 02 Pathologist provided ICD-10: D25.1, N88.8, N71.9 . 02 CPT . 564513 Specimen Comment: A courtesy copy of this report has been sent to Specimen Comment: [phone], . Specimen Comment: Report sent to / DR CUELLO Specimen Comment: A duplicate report has been generated due to demographic updates. Performed at: 01 [facility] [address], [place] [id number] MD Lit Mitchell MD Phone: [phone] Performed at: 02 [facility] [address] [place], [place] [id number] MD Dimitry Flor MD Phone: [phone]
== END 2018-07-08 08:20 | disposition home or self-care (01) | DRG 743 ==
LOC: SURG 05:39 → 3 NORTH 10:48
PROVIDERS: ADMIT Obstetrics & Gynecology; ATTEND Obstetrics & Gynecology
PROC: 0UJD4ZZ Inspection of Uterus and Cervix, Percutaneous Endoscopic Approach (ICD-10-PCS; 2018-07-06)
PROC: 0UT20ZZ Resection of Bilateral Ovaries, Open Approach (ICD-10-PCS; 2018-07-06)
PROC: 0UT70ZZ Resection of Bilateral Fallopian Tubes, Open Approach (ICD-10-PCS; 2018-07-06)
PROC: 0UT90ZZ Resection of Uterus, Open Approach (ICD-10-PCS; principal; 2018-07-06 07:30)
DX: D25.9 Leiomyoma of uterus, unspecified (principal); N92.0 Excessive and frequent menstruation with regular cycle; D64.9 Anemia, unspecified; Z53.31 Laparoscopic surgical procedure converted to open procedure; N83.201 Unspecified ovarian cyst, right side; E66.01 Morbid (severe) obesity due to excess calories; I10 Essential (primary) hypertension; Z88.6 Allergy status to analgesic agent; Z80.9 Family history of malignant neoplasm, unspecified; Z82.49 Family history of ischemic heart disease and other diseases of the circulatory system; Z90.49 Acquired absence of other specified parts of digestive tract
CPT/HCPCS: 36415; 80048; 81001; 81025; 85014; 85025; 85027; 86850; 86900; 86901; 88307; A7015; J0461; J0780; J1100; J2001; J2250; J2270; J2405; J2704; J2710; J3010; J3490; J7030; J7120; P9045